=== PATIENT | female | born 1975 | race Caucasian/White ===

== ENCOUNTER 2017-11-09 08:16 | Outpatient (CLI) | payer BC | END 2017-11-09 08:17 | disposition home or self-care (01) | LOC: BICMAMMO 08:16 | PROVIDERS: ATTEND Family Medicine | DX: Z12.31 Encounter for screening mammogram for malignant neoplasm of breast (principal); Z80.3 Family history of malignant neoplasm of breast | CPT/HCPCS: 77063; 77067 ==

== ENCOUNTER 2019-05-20 15:08 | Outpatient (CLI) | payer BC ==
--- NOTE | 2019-05-20 15:30 | RAD ---
EXAM: XR Cerv Sp Ap Lat STANDARD PROVIDED CLINICAL HISTORY: Neck pain. COMPARISON: None FINDINGS: C1 to the cervicothoracic junction is seen on the lateral view. There is straightening of the normal cervical lordotic curvature. No fracture or subluxation is seen involving the cervical spine. Interspinous distances are within normal limits. Prevertebral soft tissues have a normal appearance. IMPRESSION: Straightening of the normal cervical lordotic curvature which may be related to muscle spasm or posit ioning. Otherwise, no acute findings are seen involving the cervical spine.
== END 2019-05-20 15:09 | disposition home or self-care (01) ==
LOC: BICRAD 15:08
PROVIDERS: ATTEND Family Medicine
DX: M54.2 Cervicalgia (principal)
CPT/HCPCS: 72040

== ENCOUNTER 2019-05-26 08:18 | Outpatient (CLI) | payer BC ==
--- NOTE | 2019-05-26 09:17 | MRI ---
CERVICAL SPINE MRI WITHOUT CONTRAST:: HISTORY: Neck pain and stiffness on the right. TECHNIQUE: Multiplanar multisequence MR imaging of the cervical spine without contrast. FINDINGS: The sagittal STIR imaging demonstrates no focal area of osseous marrow edema. Craniocervical and cervicothoracic junctions are intact. No anterolisthesis or retrolisthesis. No pre vertebral soft tissue swelling. C2-3: No central canal or neural foraminal stenosis. C3-4: No significant central canal or neural foraminal stenosis. C4-5: There is disc space narrowing and disc desiccation. There is a central/left paracentral annular tear with an associated small disc herniation which causes a mild degree of central canal stenosis laterally on the left. Mild left neural foraminal stenosis. No significant right neural foraminal leo nosis. C5-6: Intervertebral disc height and signal intensity within normal limits with no significant centra l canal or neural foraminal stenosis. C6-7: No significant central canal or neural foraminal stenosis C7-T1: Unremarkable. No focal area of abnormal signal intensity identified within the cervical cord. IMPRESSION: Cervical degenerative change as detailed above, most prominent on the left at C4-5 as above. Transcribed Date/Time: 05/26/2019 9:31 AM
== END 2019-05-26 08:19 | disposition home or self-care (01) ==
LOC: TBSIIMAG 08:18
PROVIDERS: ATTEND Family Medicine
DX: M54.2 Cervicalgia (principal); M47.812 Spondylosis without myelopathy or radiculopathy, cervical region
CPT/HCPCS: 72141

== ENCOUNTER 2019-08-05 09:21 | Outpatient (CLI) | payer BC ==
--- NOTE | 2019-08-05 12:01 | CT ---
CT CERVICAL SPINE WITHOUT CONTRAST: Date: 08/05/2019 INDICATION: Neck pain. Pain more prominent on the right. Correlation made to MRI cervical spine from 05/26/19. FINDINGS: Cervical vertebra maintain height and alignment in the sagittal projection. Disc spaces are preserved . At C2-3, there is no significant disc bulge. No central canal or foraminal stenosis. At C3-4, there is mild disc bulge. No central canal or foraminal stenosis. At C4-5, there is an asymmetric disc bulge/protrusion centrally and paracentrally to the left which f lattens the anterior thecal sac on the left and impinges on the anterior cord on the left. This does produce left foraminal encroachment and displaces the exiting left C5 nerve root, and probably the tr aversing left C6 nerve root. At C5-6, there is no significant disc bulge. No central canal or foraminal stenosis. At C6-7, there is no significant abnormality. IMPRESSION: Small disc protrusion to the left at C4-5 is again seen. This was also described on prior MRI. POS: [facility]IL[facility]
== END 2019-08-05 09:22 | disposition home or self-care (01) ==
LOC: BICCT 09:21
PROVIDERS: ATTEND Neurological Surgery
DX: M54.2 Cervicalgia (principal); M50.221 Other cervical disc displacement at C4-C5 level
CPT/HCPCS: 72125

== ENCOUNTER 2021-10-19 06:08 | Day surgery (SDC) | payer BC ==
[2021-10-13 14:54] VITALS: BMI 25.0
[2021-10-19] MEDS ORDERED: Gabapentin 300 MG CAP ONE (06:21)
[2021-10-19] MEDS ORDERED: Ketorolac Tromethamine 30 MG/ML VIAL ONE (06:21)
[2021-10-19] MEDS ORDERED: Acetaminophen 500 MG TAB ONE (06:21)
[2021-10-19] MEDS ORDERED: Midazolam HCl 2 mg/2 ml Vial ONE (06:41)
[2021-10-19] MEDS ORDERED: HYDROmorphone 2 MG/ML VIAL ONE (06:41)
[2021-10-19] MEDS ORDERED: Fentanyl 100 MCG/2 ML VIAL ONE (06:41)
[2021-10-19] MEDS ORDERED: Lidocaine 2% PF 5 ML VIAL ONE (06:54)
[2021-10-19] MEDS ORDERED: Bupivacaine 0.25% HCL 30 ML VIAL ONE (06:54)
[2021-10-19] MEDS ORDERED: Lidocaine 1% w/Epinephrine 1:100K 20 ML VIAL ONE (06:54)
[2021-10-19] MEDS ORDERED: Clindamycin/D5W 900 mg/50 ml Premix Bag ONE (07:23)
[2021-10-19] MEDS ORDERED: Rocuronium Bromide 10 MG/ML (10ML VIAL) ONE (07:33)
[2021-10-19] MEDS ORDERED: Ondansetron PF 4 MG/2 ML Vial ONE (07:33)
[2021-10-19] MEDS ORDERED: Dexamethasone 20 MG/5 ML VIAL ONE (07:33)
[2021-10-19] MEDS ORDERED: Lidocaine 1% PF 5 ML VIAL ONE (07:33)
[2021-10-19] MEDS ORDERED: Metoclopramide HCl 10 MG/2 ML VIAL ONE (07:33)
[2021-10-19] MEDS ORDERED: Glycopyrrolate 0.2 MG/ML 5 ML SYRINGE ONE (07:33)
[2021-10-19] MEDS ORDERED: HYDROcodone/Acetaminophen 5/325 mg Tablet ONE (09:43)
== END 2021-10-19 10:00 | disposition home or self-care (01) ==
LOC: SDC 06:08
PROVIDERS: ATTEND Specialist
PROC: 0WQF0ZZ Repair Abdominal Wall, Open Approach (ICD-10-PCS; principal; 2021-10-19)
DX: K42.0 Umbilical hernia with obstruction, without gangrene (principal); Z87.891 Personal history of nicotine dependence; Z88.0 Allergy status to penicillin; Z91.040 Latex allergy status
CPT/HCPCS: J1100; J1170; J1885; J2001; J2250; J2405; J2765; J3010; J3490; S0020

== ENCOUNTER 2022-05-11 12:38 | Outpatient (CLI) | payer BC | END 2022-05-11 12:39 | disposition home or self-care (01) | LOC: BICMAMMO 12:38 | PROVIDERS: ATTEND Family Medicine | DX: N64.4 Mastodynia (principal) | CPT/HCPCS: 77066; G0279 ==